=== PATIENT | female | born 1945 | race Caucasian/White ===

== ENCOUNTER 2021-12-06 10:10 | Emergency (ER) | payer OTHER ==
[~2021-12-06] VITALS: Ht 149.9 cm; Wt 57.2 kg
[2021-12-06 10:10] VITALS: BP_SYST 155
--- NOTE | 2021-12-06 10:10 | NUR ---
ASSISTED OUT OF CAR TO WHEELCHAIR, BROUGHT BACK TO BED #4 VIA WHEELCHAIR, TRIAGED. REPORT GIVEN TO GROVER
--- NOTE | 2021-12-06 10:42 | NUR ---
Patient came to ED bed 4 from waiting room for extreme right leg pain. Patient had more severe since last in [place]. Patient went to urgent care in [place] and was prescribed a shot and oral medication but "they weren't helping." Patient has PMH DM, elevate blood pressure, arthritis, high cholesterol. Right knee pain.Patient describes continuous pain. Patient's family at bedside.
[2021-12-06 11:36] LABS: BILIRUBIN,URINE NEGATIVE (NEGATIVE); BLOOD, URINE NEGATIVE (NEGATIVE); CLARITY/URINE CLEAR (CLEAR); GLUCOSE,URINE TRACE (NEGATIVE); KETONES,URINE NEGATIVE (NEGATIVE); LEUKOCYTE ESTERASE ,URINE 1+ (NEGATIVE); NITRITE, URINE NEGATIVE (NEGATIVE); PH,URINE 6.5 (5.0-8.0); PROTEIN URINE NEGATIVE (NEGATIVE); UROBILINOGEN,URINE 0.2 (0.2-1.0)
[2021-12-06 11:45] LABS: COLOR,URINE STRAW (YELLOW)
[2021-12-06 11:46] LABS: BACTERIA,URINE FEW /HPF (None Seen); RBC,URINE NONE SEEN /HPF (0-3)
[2021-12-06] MEDS ORDERED: DIAZEPAM 5 MG TABLET (VALIUM) PO ONE (12:30)
[2021-12-06] MEDS ORDERED: MORPHINE SULFATE 10 MG/ML VIAL IM ONE (12:30)
[2021-12-06] MEDS ORDERED: ONDANSETRON 4 MG ODT TAB PO ONE (13:30)
[2021-12-06] MEDS ORDERED: ONDANSETRON 4 MG ODT TAB ONE (13:40)
[2021-12-06] MEDS ORDERED: HYDR-3917 PO (14:03)
--- NOTE | 2021-12-06 15:11 | NUR ---
Dr. Best made aware of patient feeling nauseous still after the Zofran ODT given for patient. Patient to be monitored at the moment.
--- NOTE | 2021-12-06 15:50 | NUR ---
Patient still says she is not feeling well. Dr. Chinchilla made aware.
--- NOTE | 2021-12-06 16:30 | NUR ---
Patient given written and verbal discharge instructions and verbalizes understanding. ER MD discussed with patient the results and treatment provided. Patient in stable condition. ID arm band removed. Patient educated on pain management and to follow up with PMD. Pain Scale . Opportunity for questions provided and answered. Medication side effect fact sheet provided.
[2021-12-06 19:46] VITALS: BP_SYST 134
== END 2021-12-06 16:45 | disposition home or self-care (01) ==
LOC: SED 10:10
DX: M54.41 Lumbago with sciatica, right side (principal); E11.65 Type 2 diabetes mellitus with hyperglycemia; R73.9 Hyperglycemia, unspecified; E78.00 Pure hypercholesterolemia, unspecified; Z79.899 Other long term (current) drug therapy
CPT/HCPCS: 99284; 81000; 82962; 87086; 96372; Q0162; J2270